=== PATIENT | male | born 1945 | race Two or more races ===

== ENCOUNTER 2020-05-31 18:51 | Inpatient (IN) | payer MEDICARE, OTHER ==
[~2020-05-31] VITALS: Ht 182.9 cm; Wt 97.2 kg
--- NOTE | 2020-05-31 19:38 | NUR ---
PRESENTED TO THE ER FOR C/O GENERALIZED WEAKNESS AND POOR APPETITE FOR THE PAST MONTH. PER BROTHER PT HAD A FALL EPISODE LAST NIGHT AND THE BROTHER FOUNH HIM ON THE FLOOR THIS MORNING. CURRENTLY PT IS ALERT AND OX4, RESPONSIVE TO QUESTIONS .DIAGNOSED W/ LIVER CA 4 MONTHS AGO AND TAKING LENVIMA DAILY,. PT WAS PLACED IN BED 4 ER. ON MONITOR,
[2020-05-31 19:56] LABS: BASOPHILS # (AUTO) 0.1 /CMM (0.0-0.2); BASOPHILS % (AUTO) 0.9 % (0.0-2.0); EOSINOPHILS % (AUTO) 0.5 % (0.0-6.0); LYMPHOCYTES # (AUTO) 1.7 /CMM (0.8-4.8); LYMPHOCYTES % (AUTO) 20.9 % (20.0-44.0); MEAN CORPUSCULAR HGB CONC 33 g/dl (31.0-36.0); MEAN CORPUSCULAR VOLUME 99 fL (80-96); MONOCYTES # (AUTO) 0.8 /CMM (0.1-1.30); MONOCYTES % (AUTO) 9.4 % (2.0-12.0); NEUTROPHILS # (AUTO) 5.7 /CMM (1.8-8.9); NEUTROPHILS % (AUTO) 68.3 % (43.0-81.0); RED BLOOD CELL COUNT(AUTO) 6.44 MIL/uL (4.5-6.0); WHITE BLOOD COUNT (AUTO) 8.3 K/uL (4.3-11.0)
--- NOTE | 2020-05-31 20:03 | NUR ---
DR KRAMER WITH BIOMASS PLANT MANAGER AT BED SIDE
[2020-05-31 20:04] LABS: HEMATOCRIT 63 % (39-51); HEMOGLOBIN 20.9 g/dL (13.5-17.5)
[2020-05-31 20:06] LABS: ALANINE AMINOTRANSFERASE 39 U/L (12-78); ALBUMIN 1.8 g/dL (3.4-5.0); ALKALINE PHOSPHATASE 502 U/L (46-116); ASPARTATE AMINOTRANSFERASE 93 U/L (15-37); LIPASE 39 U/L (73-393); TOTAL PROTEIN, SERUM 5.7 g/dL (6.4-8.2)
[2020-05-31 20:07] LABS: CALCIUM, SERUM 9.5 mg/dL (8.5-10.1); CARBON DIOXIDE 24 mmol/L (21-32); CHLORIDE 101 mmol/L (98-107); CREATININE 1.4 mg/dL (0.6-1.3); GLUCOSE 115 mg/dL (74-106); POTASSIUM 4.7 mmol/L (3.5-5.1); SODIUM SERUM 136 mmol/L (136-145); UREA NITROGEN, BLOOD 24 mg/dL (7-18)
--- NOTE | 2020-05-31 20:21 | NUR ---
BROTHER, ADELINE: [phone] TEDDY PARKER: [phone]
[2020-05-31 20:37] LABS: BAND % (MANUAL) 2 % (0.0-5.0); LYMPHOCYTES % (MANUAL) 11 % (16-48); MONOCYTES % (MANUAL) 4 % (0-11.0); NEUTROPHILS % (MANUAL) 83 (42-76)
[2020-05-31 20:38] LABS: PLATELET COUNT (AUTO) 91 /CMM (150-450)
[2020-05-31 20:42] LABS: BASOPHILS % (AUTO) 0.5 % (0.0-2.0); EOSINOPHILS % (AUTO) 0.4 % (0.0-6.0); LYMPHOCYTES # (AUTO) 1.3 /CMM (0.8-4.8); LYMPHOCYTES % (AUTO) 18.5 % (20.0-44.0); MEAN CORPUSCULAR HGB CONC 33 g/dl (31.0-36.0); MEAN CORPUSCULAR VOLUME 99 fL (80-96); MONOCYTES # (AUTO) 0.7 /CMM (0.1-1.30); MONOCYTES % (AUTO) 9.2 % (2.0-12.0); NEUTROPHILS # (AUTO) 5.1 /CMM (1.8-8.9); NEUTROPHILS % (AUTO) 71.4 % (43.0-81.0); PLATELET COUNT (AUTO) 89 /CMM (150-450); RED BLOOD CELL COUNT(AUTO) 6.21 MIL/uL (4.5-6.0); WHITE BLOOD COUNT (AUTO) 7.1 K/uL (4.3-11.0)
[2020-05-31] MEDS ORDERED: LENV8CAP PO (20:42)
--- NOTE | 2020-05-31 20:45 | NUR ---
BACK FROM CT
[2020-05-31 20:50] LABS: HEMATOCRIT 61 % (39-51); HEMOGLOBIN 20.3 g/dL (13.5-17.5)
--- NOTE | 2020-05-31 20:54 | NUR ---
COVID SWAB COLLECTED AND SENT TO LAB.
[2020-05-31] MEDS ORDERED: FURO-145 PO (21:15)
[2020-05-31] MEDS ORDERED: METF-440 PO (21:15)
[2020-05-31] MEDS ORDERED: IV NS 0.9% 1,000 ML IV ONE (21:30)
--- NOTE | 2020-05-31 21:37 | NUR ---
CALL FROM LAB, RAPID COVID NEGATIVE.
--- NOTE | 2020-05-31 21:38 | NUR ---
TELE 304-2
--- NOTE | 2020-05-31 21:52 | NUR ---
REPORT GIVEN TO MIGUEL ON THIRD FLOOR
--- NOTE | 2020-05-31 22:48 | NUR ---
PT WAS TRANSFERRED TO [address] [place] [address]
[2020-05-31 23:00] VITALS: BP 108/68
[2020-05-31] MEDS ORDERED: Z GUARD REMEDY 2 OZ OINT TP PRN (23:00)
[2020-05-31] MEDS ORDERED: MAG HYDROX/AL HYDROX/SIMETH 30 ML UDC PO PRN (23:00)
[2020-05-31] MEDS ORDERED: ONDANSETRON HCL/PF 4 MG/2 ML VIAL IVP PRN (23:00)
[2020-05-31] MEDS ORDERED: MAGNESIUM HYDROXIDE 30 ML UDC PO PRN (23:00)
[2020-05-31] MEDS ORDERED: HYDROCODONE/APAP 5/325MG TABLET PO PRN (23:00)
[2020-05-31] MEDS ORDERED: ACETAMINOPHEN 325 MG TABLET PO PRN (23:00)
[2020-05-31] MEDS ORDERED: ZOLPIDEM TARTRATE 5 MG TABLET PO PRN (23:00)
--- NOTE | 2020-05-31 23:00 | NUR ---
tag clerkwater truck driver notes Received Pt from ER nurse VAL Sebastian. Pt arrived at the unit with a gurney and ACLS protocol. Pt is alert and orientedX3. Pt speaks Central African and able to make needs known. Respiration is normal in room air. VS is stable. Afebrile. Tele monitor showed sinus arrythmia HR at 76. IV site at LAC#18 is clean, intact and infusing well NS bolus from ER. Pt also came with Lenvima chemo drug. Will give to pharmacy in am. Pt refused skin assessment. Offered multiple times. Explained risks and benefits. Pt keep refusing and get agitated easily. Pt's belonging is checked with SAPPHIRE Fink. Reorient Pt to the room and the use of call light. Pt verbalized understanding. Offered Pt snacks and water. Safety precautions is maintained. Bed at low position, brakes locked, side rails upX2, hob elevated, and call light is within reach. Will continue to monitor.
[2020-06-01] VITALS (8 sets, daily range): BP systolic 99–138; BP diastolic 63–86
[2020-06-01] MEDS ORDERED: ENOXAPARIN SODIUM 40 MG/0.4 ML DISP.SYRIN SQ SCH
--- NOTE | 2020-06-01 | NUR ---
trust and estates attorney notes Pt refused blood sugar checks. Offered several times. Pt keep refusing. Explained risks and benefits. Charge nurse is aware and notified. Will continue to monitor.
--- NOTE | 2020-06-01 00:40 | NUR ---
dental laboratory worker notes Informed MD regarding Pt Hgb is 20.3 Hct is 61 and platelet is 89. MD ordered to change to heparin 5000 unit Q 12. No lovenox. Returned lovenox to [facility].
[2020-06-01] MEDS: HEPARIN SODIUM, PORCINE 5000 UNITS/1 ML VIAL SQ SCH ×2 (00:45→09:00)
[2020-06-01] MEDS: IV 1/2NS 1000 ML 1,000 ML IV PRN (02:16)
--- NOTE | 2020-06-01 06:50 | NUR ---
food chemist closing notes Pt is resting in bed comfortably. Pt is alert and orientedX3. Respiration is normal in room air. No SOB. No S/S of distress noted. VS is stable. Afebrile. Tele monitor showed Sinus Arrythmia Hr at 85 with multifocal PVC. IV site at L hand#22 is clean, intact and infuising well 0.45NS@ 75 ml/hr. Kept Pt clean, dry and comfortable. All needs met and attended. safety precautions is maintained. Bed at low position, brakes locked, side rails upX2 and call light is within reach. Will endorse to morning nurse for CHERISE.
[2020-06-01] MEDS: BLOOD SUGAR DIAGNOSTIC 1 EACH STRIP IN SCH ×4 (06:53→22:19)
[2020-06-01] MEDS: INSULIN REGULAR, HUMAN 100 UNIT/ML 3 ML VIAL SQ PRN ×2 (06:54→22:20)
[2020-06-01 07:10] LABS: BASOPHILS % (AUTO) 0.3 % (0.0-2.0); EOSINOPHILS % (AUTO) 0.3 % (0.0-6.0); HEMATOCRIT 57 % (39-51); LYMPHOCYTES # (AUTO) 1.9 /CMM (0.8-4.8); LYMPHOCYTES % (AUTO) 21.4 % (20.0-44.0); MEAN CORPUSCULAR HGB CONC 34 g/dl (31.0-36.0); MEAN CORPUSCULAR VOLUME 98 fL (80-96); MONOCYTES # (AUTO) 0.8 /CMM (0.1-1.30); MONOCYTES % (AUTO) 8.7 % (2.0-12.0); NEUTROPHILS # (AUTO) 6.2 /CMM (1.8-8.9); NEUTROPHILS % (AUTO) 69.3 % (43.0-81.0); PLATELET COUNT (AUTO) 96 /CMM (150-450); RED BLOOD CELL COUNT(AUTO) 5.85 MIL/uL (4.5-6.0); WHITE BLOOD COUNT (AUTO) 8.9 K/uL (4.3-11.0)
[2020-06-01 07:12] LABS: HEMOGLOBIN 19.3 g/dL (13.5-17.5)
[2020-06-01 07:23] LABS: CALCIUM, SERUM 9.4 mg/dL (8.5-10.1); CARBON DIOXIDE 19 mmol/L (21-32); CHLORIDE 105 mmol/L (98-107); CREATININE 1.5 mg/dL (0.6-1.3); GLUCOSE 85 mg/dL (74-106); PHOSPHORUS 3.4 mg/dL (2.5-4.9); POTASSIUM 4.8 mmol/L (3.5-5.1); SODIUM SERUM 136 mmol/L (136-145); UREA NITROGEN, BLOOD 28 mg/dL (7-18)
[2020-06-01] MEDS: PANTOPRAZOLE 40 MG TABLET.DR PO SCH (07:30)
[2020-06-01 07:36] LABS: CHOLESTEROL 202 mg/dL (<200); HDL CHOLESTEROL 21 mg/dL (40-60); LDL 170 mg/dL (0-99); THYROID STIMULATING HORMONE 5.846 uIU/mL (0.358-3.74); TRIGLYCERIDES 94 mg/dL (30-150)
[2020-06-01] MEDS: LENVATINIB MESYLATE PO SCH (09:00)
[2020-06-01 12:37] LABS: ALBUMIN 1.7 g/dL (3.4-5.0); BILIRUBIN,DIRECT 7.9 mg/dL (0.0-0.2); BILIRUBIN,TOTAL 10.9 mg/dL (0.2-1.0); D-DIMER 12.29 mg/L(FEU (0.17-0.50); TOTAL PROTEIN, SERUM 5.1 g/dL (6.4-8.2)
[2020-06-01] MEDS ORDERED: LACTULOSE 10 G/15 ML UDC (PYXIS) PO PRN (14:00)
[2020-06-01] MEDS: LACTULOSE 10 G/15 ML UDC (PYXIS) PO SCH ×2 (15:00→21:00)
--- NOTE | 2020-06-01 19:46 | NUR ---
MS RN OPENING NOTE PATIENT A/OX1. SLEEPING; APHASIC AT THIS TIME. ON ROOM AIR; TOLERATING WELL WITH NO SOB. LEFT HAND #24G S/L; PATENT AND INTACT. DENIES PAIN OR DISCOMFORT AT THIS TIME. SAFETY MEASURES IN PLACE: BED IN LOWEST LOCKED POSITION, SIDE RAILS UPX2, BED ALARMS ON, CALL LIGHT WITHIN EASY REACH. PATIENT IS STABLE AT THIS TIME; WILL CONTINUE PLAN OF CARE.
--- NOTE | 2020-06-01 20:55 | NUR ---
MS RN NOTE PATIENT A/O 0; NOT RESPONSIVE TO PAINFUL STIMULI. NOTIFIED FORTINO SEAMAN AND CAME TO ASSESS PATIENT. ORDERED FOR STAT ABGS. ORDERS CARRIED OUT.
--- NOTE | 2020-06-01 22:35 | NUR ---
MS RN NOTE REPORTED ABG LAB TO FORTINO SEAMAN WITH ORDERS TO TRANSFER PATIENT TO ICU.
[2020-06-01 22:38] LABS: ABG BASE EXCESS -2.3 mmol/L; ABG OXYGEN SATURATION 95.4 % (92.0-98.5); ABG PCO2 16.8 mmHg (35.0-45.0); ABG PH 7.568 (7.350-7.450); AaDO2 57.6 mmHg; COHb 0.9 % (0.5-1.5); MetHb 0.4 % (0.0-1.5); O2Hb 94.2 % (94.0-97.0); SITE, ABG Left Brachial; VENT MODE, BG ROOM AIR
--- NOTE | 2020-06-01 22:50 | NUR ---
Received patient from [facility],transfered to iCu for closer monitory due to AMS,patient was admitted 05/31/20 due to generalized weakness.Hx of Hepatocellular CA.On admission Gzxoscq=031.Tonight found more altered(unresponsive) Ydcjuvs=044( no lactulose was given all day). Patient still unresponsive,slight blinking of eyes and slight withdrawal to deep pain. Icteric sclera, jaundiced all over, + Ascites. 2300 Moore catheter inserted ( deep orange colored urine),NGT inserted via right nares for meds.(will give 1 st dose of Lactulose.
--- NOTE | 2020-06-01 23:05 | NUR ---
MS RELEASE SPECIALIST NOTE GAVE REPORT TO LAURI PIER HAND HELPER. TRANSFERRED PATIENT TO ICU 258-1 UNDER ACLS MEASURES. ALL PATIENT BELONGINGS AND MEDICATIONS ARE BROUGHT TO ICU.
--- NOTE | 2020-06-01 23:22 | NUR ---
NOTIFIED NUVIA (BROTHER) THAT PATIENT TRANSFERRED TO ICU
[2020-06-01 23:29] LABS: CALCIUM, SERUM 8.8 mg/dL (8.5-10.1); CREATININE 0.7 mg/dL (0.6-1.3); POTASSIUM 3.7 mmol/L (3.5-5.1)
[2020-06-02] VITALS (84 sets, daily range): BP systolic 56–158; BP diastolic 23–118
--- NOTE | 2020-06-02 | NUR ---
Remains unresponsive,breathing regular and non labored,with O2 via NC ,saturating 94-95 %.Will closely monitor respiratory status,Aspiration Precaution.
[2020-06-02] MEDS: LACTULOSE 10 G/15 ML UDC (PYXIS) PO SCH ×4 (00:13→17:41)
[2020-06-02] MEDS: IV 1/2NS 1000 ML 1,000 ML IV PRN (00:58)
--- NOTE | 2020-06-02 04:00 | NUR ---
Still obtunded,still not fully waking up but responding to pain more,moves both arms,slightly opens eyes to pain,breathing easy and non labored.
--- NOTE | 2020-06-02 04:30 | NUR ---
No urine output for the last 4 hours. HAND CIGAR MAKER Demetra Sims was made aware,does not want any additional IV fluids ( patient already on 02/06 NSS @ 75 ml/hr.
[2020-06-02 04:33] LABS: BASOPHILS % (AUTO) 0.3 % (0.0-2.0); EOSINOPHILS % (AUTO) 0.1 % (0.0-6.0); HEMATOCRIT 59 % (39-51); LYMPHOCYTES # (AUTO) 1.9 /CMM (0.8-4.8); LYMPHOCYTES % (AUTO) 19.8 % (20.0-44.0); MEAN CORPUSCULAR HGB CONC 34 g/dl (31.0-36.0); MEAN CORPUSCULAR VOLUME 97 fL (80-96); MONOCYTES # (AUTO) 0.8 /CMM (0.1-1.30); MONOCYTES % (AUTO) 8.5 % (2.0-12.0); NEUTROPHILS # (AUTO) 6.7 /CMM (1.8-8.9); NEUTROPHILS % (AUTO) 71.3 % (43.0-81.0); WHITE BLOOD COUNT (AUTO) 9.4 K/uL (4.3-11.0)
[2020-06-02 04:52] LABS: ALANINE AMINOTRANSFERASE 41 U/L (12-78); ALBUMIN 1.9 g/dL (3.4-5.0); ALKALINE PHOSPHATASE 448 U/L (46-116); ASPARTATE AMINOTRANSFERASE 112 U/L (15-37); BILIRUBIN,TOTAL 11.9 mg/dL (0.2-1.0); CALCIUM, SERUM 9.6 mg/dL (8.5-10.1); CARBON DIOXIDE 14 mmol/L (21-32); CHLORIDE 103 mmol/L (98-107); CREATININE 2.5 mg/dL (0.6-1.3); GLUCOSE 93 mg/dL (74-106); PHOSPHORUS 4.7 mg/dL (2.5-4.9); POTASSIUM 5.5 mmol/L (3.5-5.1); SODIUM SERUM 134 mmol/L (136-145); TOTAL PROTEIN, SERUM 5.6 g/dL (6.4-8.2); UREA NITROGEN, BLOOD 36 mg/dL (7-18)
--- NOTE | 2020-06-02 06:00 | NUR ---
REmains obtunded,still maintaining good,patent airway ,saturating 93-94 %, still with no urine output.
[2020-06-02 06:11] LABS: PLATELET COUNT (AUTO) 116 /CMM (150-450)
[2020-06-02 06:15] LABS: BAND % (MANUAL) 1 % (0.0-5.0); LYMPHOCYTES % (MANUAL) 18 % (16-48); MONOCYTES % (MANUAL) 4 % (0-11.0); NEUTROPHILS % (MANUAL) 77 (42-76)
--- NOTE | 2020-06-02 06:45 | NUR ---
Alcon called for updates,expresses desire to transfer patient to another hospital ([facility]),briefly explain to her the process of transferring patient to another hospital,advised her to call a little later and speak to the MD in charge.Also mentioned to her that the patient may need a central line ( PICC ) if condition deteriorates,she states that whatever is needed to be done ,she agress and we can go ahead and do it if needed.
--- NOTE | 2020-06-02 08:00 | NUR ---
RN NOTES GET PATIENT CONFUSED NO RESPONDING NAMES, ON O2-3LNC, COLOR IS YELLOW, DISTENDED ABDOMEN, SOTO DRAIN DARK YELLOW SMALL AMOUNT OF OUTPUT, BREATHING DEEP. NG TUBE INTACT, ADMINISTERED DUE MEDICATION VIA NG TUBE, ABG DONE AND RESULT GIVEN DR GIBSON, AND HOSPITALIST DARWIN. INFUSING 1/2 NS @ 75 ML/HR, ON LEFT AC AREA INTACT. CALL LIGHT WITHIN TO REACH. SEEN GRADER MEAT Dr SOTO, PATIENT GET US OF KIDNEY,ECHO, AND LABS ORDERS. WILL FOLLOW UP.
[2020-06-02 08:10] LABS: ABG BASE EXCESS -12.7 mmol/L; ABG OXYGEN SATURATION 97.5 % (92.0-98.5); ABG PCO2 13.1 mmHg (35.0-45.0); ABG PH 7.379 (7.350-7.450); ABG PO2 98.4 mmHg (75.0-100.0); AaDO2 114.4 mmHg; COHb 0.4 % (0.5-1.5); MetHb 0.7 % (0.0-1.5); O2Hb 96.4 % (94.0-97.0); SITE, ABG Left Radial; VENT MODE, BG Nasal Cannula
[2020-06-02] MEDS: BLOOD SUGAR DIAGNOSTIC 1 EACH STRIP IN SCH ×4 (08:46→21:42)
[2020-06-02] MEDS: PANTOPRAZOLE 40 MG TABLET.DR PO SCH (08:46)
[2020-06-02] MEDS: DEXTROSE 50%-WATER 50 ML DISP.SYRIN IV PRN ×2 (08:47→10:48)
--- NOTE | 2020-06-02 08:47 | NUR ---
RN NOTES BS-60, ADMINISTERED DEXTROSE IV PUSH. WILL RECHECKED .
[2020-06-02] MEDS: LENVATINIB MESYLATE PO SCH (09:02)
--- NOTE | 2020-06-02 09:04 | NUR ---
RN NOTES GET ORDER Dr GIBSON PATIENT WILLING TO BE INTUBATED AT THIS TIME, CALLED ER MD. FAMILY NOTIFIED VIA Dr GIBSON.
--- NOTE | 2020-06-02 09:11 | NUR ---
rn notes PATIENT GET INTUBATED AT THIS TIME VIA ER MD STUART-7.5, PEEP-5, TV-500, AC-20, STARTED DIPRIVAN 5MCG/KG/HR .CALLED HOSPITAL COMMISSION SALES ASSOCIATE FOR PICC LINE INSERTION. WILL MONITORING.
[2020-06-02] MEDS: PROPOFOL 100 ML IV PRN ×2 (09:20→18:34)
[2020-06-02] MEDS: ALBUMIN 25% 25 GM in PREMIX 1 EA IV SCH ×2 (10:00→18:00)
[2020-06-02 10:11] LABS: BASOPHILS % (AUTO) 0.3 % (0.0-2.0); EOSINOPHILS % (AUTO) 0.3 % (0.0-6.0); LYMPHOCYTES # (AUTO) 0.9 /CMM (0.8-4.8); LYMPHOCYTES % (AUTO) 11.6 % (20.0-44.0); MEAN CORPUSCULAR HGB CONC 32 g/dl (31.0-36.0); MEAN CORPUSCULAR VOLUME 101 fL (80-96); MONOCYTES # (AUTO) 0.7 /CMM (0.1-1.30); MONOCYTES % (AUTO) 8.8 % (2.0-12.0); NEUTROPHILS # (AUTO) 5.9 /CMM (1.8-8.9); PLATELET COUNT (AUTO) 117 /CMM (150-450); RED BLOOD CELL COUNT(AUTO) 5.95 MIL/uL (4.5-6.0); WHITE BLOOD COUNT (AUTO) 7.5 K/uL (4.3-11.0)
[2020-06-02 10:17] LABS: CALCIUM, SERUM 9.6 mg/dL (8.5-10.1); CHLORIDE 101 mmol/L (98-107); CREATININE 3.4 mg/dL (0.6-1.3); GLUCOSE 150 mg/dL (74-106); SODIUM SERUM 135 mmol/L (136-145); UREA NITROGEN, BLOOD 38 mg/dL (7-18)
[2020-06-02 10:20] LABS: HEMATOCRIT 60 % (39-51); HEMOGLOBIN 19.5 g/dL (13.5-17.5); POTASSIUM 6.6 mmol/L (3.5-5.1)
[2020-06-02 10:21] LABS: CARBON DIOXIDE 8 mmol/L (21-32)
[2020-06-02 10:23] LABS: ALANINE AMINOTRANSFERASE 64 U/L (12-78); ALBUMIN 1.8 g/dL (3.4-5.0); ALKALINE PHOSPHATASE 441 U/L (46-116); ASPARTATE AMINOTRANSFERASE 271 U/L (15-37); MAGNESIUM 2.1 mg/dL (1.8-2.4); PHOSPHORUS 6.8 mg/dL (2.5-4.9); TOTAL PROTEIN, SERUM 5.5 g/dL (6.4-8.2)
--- NOTE | 2020-06-02 10:25 | NUR ---
rn notes get critical lab values kcl-6.6, carbon dioxide 8, hemoglobin 19, hematocrit 60, notified Dr Murphy, for orders.
--- NOTE | 2020-06-02 10:40 | NUR ---
rn notes GET CALL BACK Dr GUTIERREZ AND GET ORDER 10U REGULAR INSULIN IVP X 1, 1 AMP 0F DEXTROSE, AND REPEAT KCL IN 3 HR. ORDER TAKEN AND CARRIED OUT.
[2020-06-02 10:51] LABS: ABG BASE EXCESS -19.1 mmol/L; ABG OXYGEN SATURATION 96.5 % (92.0-98.5); ABG PCO2 17.7 mmHg (35.0-45.0); ABG PH 7.173 (7.350-7.450); ABG PO2 109.2 mmHg (75.0-100.0); AaDO2 155.6 mmHg; COHb 0.3 % (0.5-1.5); MetHb 0.9 % (0.0-1.5); O2Hb 95.3 % (94.0-97.0); PEEP,BG 5 cm H2O; SITE, ABG Right Radial; VT, ABG 500 mL
[2020-06-02] MEDS: INSULIN REGULAR, HUMAN 100 UNIT/ML 3 ML VIAL SQ PRN ×2 (10:51→12:56)
[2020-06-02] MEDS ORDERED: ETOMIDATE 2 MG/ML VIAL IV ONE (11:35)
[2020-06-02 11:51] LABS: LYMPHOCYTES % (MANUAL) 9 % (16-48); MONOCYTES % (MANUAL) 5 % (0-11.0); NEUTROPHILS % (MANUAL) 86 (42-76)
[2020-06-02] MEDS ORDERED: Sodium Bicarbonate 150 MEQ in IV D5W 1,000 ML IV PRN (12:00)
--- NOTE | 2020-06-02 12:00 | NUR ---
RN NOTES PER BROTHER NAME ADELINE PHONE #[phone] AND OTHER FAMILY MEMBERS AGREED DNR BECAUSE OF PATIENT CONDITION. Dr GUTIERREZ NOTIFIED.
--- NOTE | 2020-06-02 13:16 | NUR ---
RN NOTES STARTED D5W 1000ML WITH 3 AMP OF SODIUM BICARB AT 80 ML/HR ON RIGHT PICC LINE.
[2020-06-02] MEDS: NOREPINEPHRINE 8 MG in IV NS 0.9% 242 ML IV PRN ×2 (13:22→19:40)
[2020-06-02] MEDS ORDERED: Sodium Bicarbonate 150 MEQ in IV D5W 1,000 ML IV SCH ×2 (13:28→13:30)
--- NOTE | 2020-06-02 14:21 | NUR ---
RN NOTES PATIENT GETTING US OF LIVER.
[2020-06-02 14:46] LABS: CALCIUM, SERUM 6.7 mg/dL (8.5-10.1); CHLORIDE 103 mmol/L (98-107); CREATININE 2.9 mg/dL (0.6-1.3); GLUCOSE 163 mg/dL (74-106); SODIUM SERUM 135 mmol/L (136-145); UREA NITROGEN, BLOOD 35 mg/dL (7-18)
[2020-06-02 14:47] LABS: POTASSIUM 6.2 mmol/L (3.5-5.1)
[2020-06-02 14:48] LABS: CARBON DIOXIDE 7 mmol/L (21-32)
[2020-06-02] MEDS ORDERED: NOREPINEPHRINE 8 MG in IV NS 0.9% 242 ML IV PRN (15:00)
--- NOTE | 2020-06-02 15:51 | NUR ---
rn noters critical lab values KCL 6.2, D notified Dr Murphy waiting for orders.
--- NOTE | 2020-06-02 15:58 | NUR ---
RN NOTES GET CALL BACK FROM MD GUTIERREZ AND GET NEW ORDERS: ARE INSULIN 10U X1, AND KAYEXALATE 30 G X1 VIA NG TUBE, ORDERS TAKEN AND CARRIED OUT.
[2020-06-02] MEDS ORDERED: SODIUM POLYSTYRENE SULF. PWD 15 GM UDC PO ONE (16:30)
[2020-06-02] MEDS ORDERED: DEXTROSE 50%-WATER 50 ML DISP.SYRIN IVP ONE ×2 (16:30→18:00)
[2020-06-02] MEDS ORDERED: INSULIN REGULAR, HUMAN 100 UNIT/ML 3 ML VIAL SQ ONE (16:30)
--- NOTE | 2020-06-02 18:24 | NUR ---
RN NOTES BS-161 MG/DL, HR-90 BEDSIDE MONITOR. DUE MEDICATION ADMINISTERED, INFUSING D5W WITH 3 AMP OF BICARB @ 80ML/HR, LEVOPHED 0.2MCG/KG/HR, AND DIPRIVAN 15MCG/KG/HR ON RIGHT UA PICC LINE. LOW SOTO CATHETER OUTPUT 30ML. HOB ELEVATED, NO BOWEL MOVEMENT AFTER MEDICATION. FLASHED NGT WITH 100 ML/WATER, ASSIST TURN AND REPOSTION Q2 HR. BROTHER NEXT TO THE BED. ENDORSED ONCOMING NURSE FOLLOW PLAN OF CARE.
--- NOTE | 2020-06-02 19:30 | NUR ---
RN NOTES RECEIVED PATIENT ORALLY INTUBATED ETT 7 AND 24 CM AT LIPLINE. WITH VENT SETTING OF AC 28 TV 500 FIO2 40% AND PEEP 5 NO ACUTE RESPIRATORY DISTRESS. TACHYPNEA NOTED HR 28-30 SEDATED WITH DIPRIVAN @ 15 MCK/KG/MIN. GTF TOLERATED WELL, SOTO CATH DRAINED VIA GRAVITY . NIV SITE ON LFA, RIGHT HAND AND LEFT HAND AND WENDY PICC LINE WITH ONGOING D5 W + 3 AMP BICARB, DIPRIVAN AND LEVOPHED WILL TITRATED PROTOCOL ORDER. ABDOMINAL DISTENTION PRESENT SOFT . CONTINUE TO MONITOR FOR ANY CHANGES KEPT PT CLEAN AND DRY WILL CONT. POC.
--- NOTE | 2020-06-02 20:00 | NUR ---
RN NOTES NOTED PATIENT GASTRIC RESIDUAL WAS 350 ML,WILL CONTINUE WITH POC.
[2020-06-03] VITALS (85 sets, daily range): BP systolic 40–171; BP diastolic 14–104
[2020-06-03] MEDS: LACTULOSE 10 G/15 ML UDC (PYXIS) PO SCH ×4 (00:09→17:41)
[2020-06-03] MEDS: NOREPINEPHRINE 8 MG in IV NS 0.9% 242 ML IV PRN ×4 (01:57→23:04)
[2020-06-03] MEDS: ALBUMIN 25% 25 GM in PREMIX 1 EA IV SCH (02:00)
[2020-06-03] MEDS: Sodium Bicarbonate 150 MEQ in IV D5W 1,000 ML IV SCH ×2 (02:12→15:52)
[2020-06-03 04:25] LABS: BASOPHILS # (AUTO) 0.1 /CMM (0.0-0.2); BASOPHILS % (AUTO) 0.7 % (0.0-2.0); EOSINOPHILS % (AUTO) 0.2 % (0.0-6.0); HEMATOCRIT 57 % (39-51); HEMOGLOBIN 18.4 g/dL (13.5-17.5); LYMPHOCYTES # (AUTO) 1.7 /CMM (0.8-4.8); LYMPHOCYTES % (AUTO) 12.7 % (20.0-44.0); MEAN CORPUSCULAR HGB CONC 33 g/dl (31.0-36.0); MEAN CORPUSCULAR VOLUME 101 fL (80-96); MONOCYTES # (AUTO) 0.8 /CMM (0.1-1.30); MONOCYTES % (AUTO) 6.1 % (2.0-12.0); NEUTROPHILS % (AUTO) 80.3 % (43.0-81.0); RED BLOOD CELL COUNT(AUTO) 5.63 MIL/uL (4.5-6.0); WHITE BLOOD COUNT (AUTO) 13.7 K/uL (4.3-11.0)
[2020-06-03 04:35] LABS: SERUM AMMONIA 20 umol/L (11-32)
[2020-06-03 04:39] LABS: ALANINE AMINOTRANSFERASE 1374 U/L (12-78); ALBUMIN 1.5 g/dL (3.4-5.0); ALKALINE PHOSPHATASE 601 U/L (46-116); BILIRUBIN,DIRECT 9.8 mg/dL (0.0-0.2); BILIRUBIN,TOTAL 13.6 mg/dL (0.2-1.0); CARBON DIOXIDE 13 mmol/L (21-32); CHLORIDE 100 mmol/L (98-107); CREATINE KINASE, TOTAL 679 U/L (39-308); CREATININE 3.6 mg/dL (0.6-1.3); GLUCOSE 167 mg/dL (74-106); MAGNESIUM 2.1 mg/dL (1.8-2.4); PHOSPHORUS 6.9 mg/dL (2.5-4.9); POTASSIUM 5.4 mmol/L (3.5-5.1); SODIUM SERUM 135 mmol/L (136-145); TOTAL PROTEIN, SERUM 4.8 g/dL (6.4-8.2); UREA NITROGEN, BLOOD 41 mg/dL (7-18)
[2020-06-03 05:14] LABS: PLATELET COUNT (AUTO) 78 /CMM (150-450)
[2020-06-03 05:18] LABS: BAND % (MANUAL) 6 % (0.0-5.0); LYMPHOCYTES % (MANUAL) 4 % (16-48); MONOCYTES % (MANUAL) 3 % (0-11.0); NEUTROPHILS % (MANUAL) 87 (42-76)
[2020-06-03 05:45] LABS: ASPARTATE AMINOTRANSFERASE 2343 U/L (15-37)
--- NOTE | 2020-06-03 06:00 | NUR ---
RT NOTE PT RECEIVED ORALLY INTUBATED AND ON [facility] VENT ON ORDERED SETTINGS. VENT IS PLUGGED INTO RED OUTLET W BMV @ HOB. ALARMS ARE SET AND AUDIBLE. PT SX FOR SMALL THIN SECRETIONS. NO RESP DISTRESS NOTED T/O SHIFT. Addendum: 06/03/20 at 0600 by GO AVERY RT Amended: Links added.
[2020-06-03] MEDS: PROPOFOL 100 ML IV PRN (06:24)
--- NOTE | 2020-06-03 07:10 | NUR ---
RN NOTES RECEIVED PATIENT IN BED RESTING COMFORTABLY IN MODERATE HIGH BACK REST, SEDATED AND ON VENT, ETT 08/28, AC28,TV 500, FIO2 40, PEEP OF 5 WITH SATURATION 100%. IV ACCESS ON WENDY PICCLINE WITH D5W +3 AMP BICARB, DIPRIVAN @5 MCG/KG/MIN AND LEVOPHED @0.1 MCG/KG/MIN, TITRATED ORDERED. IV SITE REMAINED INTACT AND PATENT. NGT TO LIS. SOTO CATH INTACT AND PATENT DRAINING VIA GRAVITY. SAFETY MEASURE IN PLACE, BED IN LOWEST LOCKED POSITION WITH SIDE RAILS UP X2, CALL LIGHT WITHIN EASY REACH. WILL CONTINUE TO MONITOR.
--- NOTE | 2020-06-03 07:24 | NUR ---
RN NOTES PATIENT REMAINED UNRESPONSIVE TO STIMULI. ETT AND VENT SETTING TOLERATED WELL WITH SATURATION 100%. AFEBRILE. VSS STABLE WITH PRESSORS, NO SIGNIFICANT CHANGES, CONTINUE ON IV D5W +3 AMP BICARB, DIPRIVAN AND LEVOPHES TITRATED ORDERED. IV SITE REMAINED INTACT AND PATENT. NGT TO LIS. SOTO CATH WITH LOW URINE OUTPUT. BM X 2 . KEPT PATIENT CLEAN AND DRY. WILL ENDORSED CONT. POC.
[2020-06-03] MEDS: PANTOPRAZOLE 40 MG TABLET.DR PO SCH (07:47)
[2020-06-03] MEDS: BLOOD SUGAR DIAGNOSTIC 1 EACH STRIP IN SCH ×4 (07:47→22:12)
[2020-06-03] MEDS: INSULIN REGULAR, HUMAN 100 UNIT/ML 3 ML VIAL SQ PRN ×2 (07:50→11:53)
[2020-06-03] MEDS: LENVATINIB MESYLATE PO SCH (08:49)
[2020-06-03 08:58] LABS: ABG BASE EXCESS -12.1 mmol/L; ABG OXYGEN SATURATION 98.8 % (92.0-98.5); ABG PCO2 14.1 mmHg (35.0-45.0); ABG PH 7.391 (7.350-7.450); ABG PO2 128.5 mmHg (75.0-100.0); AaDO2 140.5 mmHg; MetHb 0.7 % (0.0-1.5); O2Hb 98.1 % (94.0-97.0); PEEP,BG 5 cm H2O; SITE, ABG Left Radial; VT, ABG 500 mL
--- NOTE | 2020-06-03 10:20 | NUR ---
LEAN MANAGER NOTES PATIENT WENT FOR CT SCAN OF HEAD. STABLE, WILL CONTINUE TO MONITOR.
--- NOTE | 2020-06-03 11:00 | NUR ---
FIELD PIPE LINES SUPERVISOR NOTES CAMEBACK FROM CT HEAD, STABLE, NO SIGNS OF DISTRESS NOTED AT THIS TIME, WILL CONTINUE TO MONITOR.
--- NOTE | 2020-06-03 12:30 | NUR ---
FAC ENGINEER NOTES BP IS GOING DOWN BUT WHILE TITRATING LEVOPHED UP, PATIENT BECAME ST ON MONITOR WITH HR OF 120'S, MD MADE AWARE WITH ORDERS TO SWITCH TO ANURADHA, ORDERS MADE AND CARRIED OUT. WILL CONTINUE TO MONITOR.
[2020-06-03] MEDS ORDERED: PHENYLEPHRINE 50 MG in IV NS 0.9% 245 ML IV PRN (13:00)
--- NOTE | 2020-06-03 14:00 | NUR ---
VOLLEYBALL COMMENTATOR NOTES UNABLE TO TURN AND REPOSITION PATIENT TOO UNSTABLE. WILL CONTINUE TO MONITOR.
--- NOTE | 2020-06-03 15:00 | NUR ---
PHOTOENGRAVING SKETCH MAKER NOTES UNABLE TO GET BP, TRIED BOTH ARMS AND LEGS BUT UNSUCCESSFUL, NOTED WITH CRITICAL LAB RESULTS, MADE AWARE, NNO AT THIS TIME. WILL CONTINUE TO MONITOR.
[2020-06-03 15:30] LABS: D-DIMER > 35.20 mg/L(FEU (0.17-0.50)
[2020-06-03] MEDS ORDERED: PHYTONADIONE INJ 10 MG/1 ML AMPUL SQ ONE (16:00)
--- NOTE | 2020-06-03 16:00 | NUR ---
WELCOME HOSTESS NOTES DR. GUTIERREZ ORDERED TO GIVE 10 MG OF VITAMIN K SQ ONE TIME, ORDERS MADE AND CARRIED OUT, WILL CONTINUE TO MONITOR.
[2020-06-03] MEDS ORDERED: diphenhydrAMINE HCL 50 MG/ML VIAL IV ONE (17:30)
[2020-06-03] MEDS: PHENYLEPHRINE 100 MG in IV NS 0.9% 240 ML IV PRN (17:41)
--- NOTE | 2020-06-03 19:15 | NUR ---
RN NOTES PATIENT IN BED IN MODERATE HIGH BACK REST, ON VENT, ETT 08/28, AC28,TV 500, FIO2 40, PEEP OF 5 WITH SATURATION 100%. IV ACCESS ON WENDY PICCLINE WITH D5W +3 AMP BICARB, LEVOPHED @0.1 MCG/KG/MIN AND ANURADHA @3 MCG/KG/MIN, TITRATED ORDERED. IV SITE REMAINED INTACT AND PATENT. NGT TO LIS. SOTO CATH INTACT AND PATENT DRAINING VIA GRAVITY. SAFETY MEASURE IN PLACE, BED IN LOWEST LOCKED POSITION WITH SIDE RAILS UP X2, CALL LIGHT WITHIN EASY REACH. TYPE AND SCREEN DONE, AWAITING FOR PLASMA,CALLED LAB, ENDORSE TO POLICE SHIFT COMMANDER NURSE FOR CHERISE.
--- NOTE | 2020-06-03 19:20 | NUR ---
RN NOTES RECEIVED PATIENT WITH ETT 7 AND 24 CM AT LIPLINE, VENT SETTING AC 28 TV 500 FIO2 40% AND PEEP 5 OBTUNDED , NON RESPONSIVE TO STIMULI. PATIENT IS HEMODYNAMICALLY UNSTABLE. PALE LOOKING, COOL SKIN, WITH FAINTED PULSES, CAPILLARY REFILL >3 SEC. WITH EXOPTHALMOS EYES RIGHT PUPIL 3 AND LEFT EYE 5 WITH BLOOD CLOTS. WITH LOW PERFUSION HARDLY GETS SATURATION PATIENT SATURATION SEEN 92%. NGT TO LIS WITH LARGE AMT OF DARK RED OUTPUT. CONTINUE ON MAX ANURADHA WITH LEVOPHED AND D5W +3 AMP BICARB AT 80 ML/HR PRESSORS TITRATED PROTOCOL ORDER. KEPT PT CLEAN AND COMFORTABLE IN BED. WILL CLOSELY MONITOR.. >PER AM SHIFT FAMILY IS AWARE AND MD SPOKE WITH THE FAMILY REGARDING THE CRITICAL CONDITION OF PATIENT.
--- NOTE | 2020-06-03 19:55 | NUR ---
RECEIVED PT ORALLY INTUBATED WITH ETT 7.5 SECURED @ 24 CM LIP LINE ON VENT WITH THE SETTINGS OF AC 28, VT 500, PEEP 5 , FIO2 40%. SX'D DONE. VENT ALARMS SET AND AUDIBLE. ETT CUFF CHECKED. VENT PLUGGED INTO RED OUTLET. WILL CONTINUE TO MONITOR PT T/O SHIFT.
--- NOTE | 2020-06-03 20:15 | NUR ---
RN NOTES INFORMED ON CALLL JURGEN, THAT PATIENT IS NOT LOOKING GOOD AND RECEIVE A CRITICAL RESULT OF FIBRINOGEN 50 BUT STILL AWAITING FOR PLASMA TO GET THAWED WHICH ORDER TODAY. PER ONCALL MD IS AWARE AND BAKING POWDER MIXER ALREADY SPOKE TO FAMILY REGARDING THE PATIENT CONDITION.
--- NOTE | 2020-06-03 21:00 | NUR ---
RN NOTES UPDATED JURGEN ONCANNALEE THAT PATIENT LEVOPHED AND ANURADHA IS ON MAX DOSE AT THIS TIME AND PATIETN UNABLE TO GET BP NOW. ONCALL AWARE. NNO AT THIS TIME.
[2020-06-03] MEDS ORDERED: diphenhydrAMINE HCL 50 MG/ML VIAL ONE (21:23)
--- NOTE | 2020-06-03 22:05 | NUR ---
RN NOTES STARTED PLASMA TRANSFUSION. UNABLETO GET BP, DOPPLER AND MANUAL CUFF USED SBP 85 MMHG. PATIENT IS ONMAXNEO AND LEVO. MD AWARE NNO.
--- NOTE | 2020-06-03 22:30 | NUR ---
RN NOTES BOX BENDER FORTINO CAME AND VISITED THE PATIETN AWARE ABOUT THE PATIENT CONDITION. NNO
[2020-06-03] MEDS ORDERED: NOREPINEPHRINE 8MG/250ML RTU 250 ML IV ONE (22:50)
[2020-06-04] VITALS (20 sets, daily range): BP systolic 50–93; BP diastolic 0–45
[2020-06-04] MEDS: PHENYLEPHRINE 100 MG in IV NS 0.9% 240 ML IV PRN ×4 (00:10→16:48)
[2020-06-04] MEDS ORDERED: NOREPINEPHRINE 4 MG/4 ML AMPUL IV ONE ×4 (00:10→05:07)
[2020-06-04] MEDS: NOREPINEPHRINE 32 MG in IV NS 0.9% 218 ML IV PRN ×4 (00:18→17:01)
--- NOTE | 2020-06-04 00:30 | NUR ---
RN DARINEL ADELINE (BROTHER) CAME AND SPOKE WITH FORTINO SOLIS USING BLUE PHONE ( LANGUAGE LINE) TO TRANSLATE TO TELUGU LANGUAGE. EXPLAINED THE PROGNOSIS OF THE PATIENT AND THE CRITICAL CONDITION OF THE PATIENT,
[2020-06-04] MEDS: LACTULOSE 10 G/15 ML UDC (PYXIS) PO SCH ×4 (01:13→17:56)
--- NOTE | 2020-06-04 01:48 | NUR ---
RN NOTES SECOND UNIT OF PLASMA STARTED PATIENT , NO CHANGE FROM PREVIOUS CONDITION. WILL CLOSELY MONITOR,. AFEBRILE.
[2020-06-04 04:18] LABS: BASOPHILS % (AUTO) 0.5 % (0.0-2.0); EOSINOPHILS % (AUTO) 0.5 % (0.0-6.0); HEMATOCRIT 49 % (39-51); HEMOGLOBIN 14.9 g/dL (13.5-17.5); LYMPHOCYTES # (AUTO) 1.3 /CMM (0.8-4.8); LYMPHOCYTES % (AUTO) 26.6 % (20.0-44.0); MEAN CORPUSCULAR HGB CONC 30 g/dl (31.0-36.0); MEAN CORPUSCULAR VOLUME 109 fL (80-96); MONOCYTES # (AUTO) 0.1 /CMM (0.1-1.30); NEUTROPHILS # (AUTO) 3.5 /CMM (1.8-8.9); NEUTROPHILS % (AUTO) 70.4 % (43.0-81.0); RED BLOOD CELL COUNT(AUTO) 4.48 MIL/uL (4.5-6.0)
[2020-06-04 04:41] LABS: ALANINE AMINOTRANSFERASE 1580 U/L (12-78); ALBUMIN 1.5 g/dL (3.4-5.0); ALKALINE PHOSPHATASE 742 U/L (46-116); BILIRUBIN,DIRECT 6.5 mg/dL (0.0-0.2); BILIRUBIN,TOTAL 11.3 mg/dL (0.2-1.0); CALCIUM, SERUM 9.1 mg/dL (8.5-10.1); CHLORIDE 99 mmol/L (98-107); CREATININE 4.6 mg/dL (0.6-1.3); GLUCOSE 82 mg/dL (74-106); MAGNESIUM 2.3 mg/dL (1.8-2.4); SODIUM SERUM 137 mmol/L (136-145); TOTAL PROTEIN, SERUM 4.2 g/dL (6.4-8.2); UREA NITROGEN, BLOOD 42 mg/dL (7-18)
[2020-06-04 04:58] LABS: PLATELET COUNT (AUTO) 46 /CMM (150-450)
[2020-06-04 05:19] LABS: POTASSIUM 6.2 mmol/L (3.5-5.1)
[2020-06-04 05:24] LABS: CARBON DIOXIDE 8 mmol/L (21-32)
[2020-06-04 05:25] LABS: PHOSPHORUS 10.7 mg/dL (2.5-4.9)
--- NOTE | 2020-06-04 05:44 | NUR ---
RN NOTES INFORMEDONCALL FORTINO SEAMAN REGARDING CRITICAL LAB PLATELET 46 CO2 8 PHOS 10.7 AND UPDATED REGARDING PATIENT STATUS THAT SBP IS ON 60'S WITH NEW ORDEROF VASOPRESSIN, HOLD LIS AND HOLD LACTULOSE FOR NOW. NOTED AND CARRIED OUT ORDER.
[2020-06-04] MEDS ORDERED: VASOPRESSIN INJ 20 UNIT/ML VIAL ONE (05:50)
[2020-06-04 05:57] LABS: BAND % (MANUAL) 13 % (0.0-5.0); EOSINOPHILS % (MANUAL) 1 % (0-4); LYMPHOCYTES % (MANUAL) 27 % (16-48); METAMYELOCYTES % 1 % (0-0); MONOCYTES % (MANUAL) 3 % (0-11.0); MYELOCYTES % 1 % (0-0); NEUTROPHILS % (MANUAL) 54 (42-76)
[2020-06-04] MEDS: VASOPRESSIN INJ 40 UNIT in IV NS 0.9% 38 ML IV PRN ×4 (06:00→17:01)
[2020-06-04] MEDS: Sodium Bicarbonate 150 MEQ in IV D5W 1,000 ML IV SCH (06:09)
[2020-06-04 06:17] LABS: ASPARTATE AMINOTRANSFERASE 14569 U/L (15-37)
--- NOTE | 2020-06-04 07:54 | NUR ---
WOUND CARE CONSULT: PT VERY UNSTABLE AT THIS TIME AND UNABLE TO BE TURNED FOR SKIN ASSESSMENT. RECOMMENDATIONS MADE FOR SKIN PROTECTION. DISCUSSED WITH NURSING STAFF. MD IN AGREEMENT WITH PLAN OF CARE. WILL SEE PT PT CONDITION PERMITS.
[2020-06-04 08:07] LABS: *SPE A/G RATIO 0.7 (0.7-1.7); *SPE ALBUMIN 1.9 g/dL (2.9-4.4); *SPE ALPHA-1-GLOBULIN 0.2 g/dL (0.0-0.4); *SPE ALPHA-2-GLOBULIN 0.4 g/dL (0.4-1.0); *SPE GLOBULIN, TOTAL 2.7 g/dL (2.2-3.9); *SPE M-SPIKE Not Observed g/dL (Not Observed); *SPEGAMMA GLOBULIN 1.1 g/dL (0.4-1.8); PTH, INTACT 360 pg/mL (15-65)
[2020-06-04] MEDS: LENVATINIB MESYLATE PO SCH (08:58)
[2020-06-04] MEDS: PANTOPRAZOLE 40 MG TABLET.DR PO SCH (08:58)
[2020-06-04] MEDS: BLOOD SUGAR DIAGNOSTIC 1 EACH STRIP IN SCH ×3 (08:59→18:12)
[2020-06-04] MEDS: HYDROCORTISONE SOD SUCCINATE 100 MG/2 ML VIAL IV SCH ×2 (09:00→12:47)
[2020-06-04] MEDS ORDERED: POLYVINYL ALCOHOL 15 ML BOTTLE EACHEYE PRN (11:00)
[2020-06-04] MEDS: DEXTROSE 50%-WATER 50 ML DISP.SYRIN IV PRN (11:43)
[2020-06-04] MEDS ORDERED: FLUDROCORTISONE 0.1 MG TABLET NG SCH (12:00)
--- NOTE | 2020-06-04 14:31 | NUR ---
RN NOTE 0715: Received patient with ETT to vent, no respiratory distress noted at this time. On 3 pressors all maxed out, Levo, Jose and Vaso. WENDY PICC intact, on Bicarb drip 3amps drip. With Moore cath, very minimal UOP noted. Noted with tender and distended abdomen. Unable to take BP via bedside monitor, checked manually, SBP 70-80's. Junctional accel 100's. With Right NGT to LIS, noted with dark brown residuals. 0800: S/E by Dr. Triplett, with new order of Fluticasone. 0830: Spoke with brother via phone, given update and aware for the poor prognosis. 0900: S/E by Dr. Montoya;eg, no new order at this time. 1100: No any significant changes noted at this time, will continue to monitor. agreed to change Protonix to IV and start eye drops. 1330: Brother Maldonado visited and able to see patient, updated re: patient;s prognosis. Per brother continue pressors and DNR. 1420: Called Maldonado, other family members with him, tried to get consent for HD cath placement and HD but family decided to decline HD and line placement.
[2020-06-04] MEDS ORDERED: diphenhydrAMINE HCL 50 MG/ML VIAL IV ONE (16:30)
--- NOTE | 2020-06-04 18:56 | NUR ---
RN NOTE Noted with pauses on the monitor. Ventricular rhythm 40-70's. Informed family and said they will visit.
--- NOTE | 2020-06-04 19:30 | NUR ---
MARBLE AND GRANITE POLISHER RCD PT W/DX ACUTE HEPATIC ENCEPHALOPATHY, PT IS MAXED ON LEVOPHED,ANURADHA, VASOPRESSIN. PT IS JUNCTIONAL ON MONITOR WITH LONG PAUSES. INTUBATED 7.5@ 24 W/VENT SETTINGS AC 28 500 40% +5. PT HAS LARGE AMOUNTS OF BLOODY SECRETIONS. PT IS JAUNDICED WITH MULITPLE BRUSING/HEMATOMA. PT BROTHER AT BEDSIDE.
--- NOTE | 2020-06-04 20:02 | NUR ---
BIOLOGIST AIDE PT MAXED ON LEVO, ANURADHA AND VASOPRESSIN. UNABLE TO PALPATE PULSE AT THIS TIME VIA TOUCH AND DOPPLER. UNABLE TO READ BLOOD PRESSURE VIA AUTOMATIC AND MANUAL CUFF. PT PRONOUNCED BY [employer] PRECASTERVAL MANCIA.
--- NOTE | 2020-06-04 20:05 | NUR ---
AUTOMOBILE PARTS ASSEMBLER PTS BROTHER AKOP [phone] NOTIFIED OF PTS . PER BROTHER HE WILL NOT BE COMING TO SEE BODY.
--- NOTE | 2020-06-04 20:51 | NUR ---
ELECTRICIAN RESEARCH S/W TONI AT [facility] . PER [facility] PT IS MARIMAR FOR DONATION, THEY WILL CALL BACK,
--- NOTE | 2020-06-04 20:52 | NUR ---
PACKAGING MACHINE OPERATOR BODY TAKEN DOWN TO [facility] [place]AN[place] BY CHARGE NURSE.
[2020-06-05] MEDS ORDERED: PANTOPRAZOLE 40 MG VIAL IV SCH (09:00)
== END 2020-06-04 20:02 | DRG 441 ==
LOC: ER 18:51 → TELE 21:42 → MED 06-01 09:44 → ICU 06-01 23:01
PROVIDERS: ADMIT Student in an Organized Health Care Education/Training Program; ATTEND Internal Medicine
PROC: 5A1945Z Respiratory Ventilation, 24-96 Consecutive Hours (ICD-10-PCS; principal; 2020-06-02)
PROC: 0BH18EZ Insertion of Endotracheal Airway into Trachea, Via Natural or Artificial Opening Endoscopic (ICD-10-PCS; 2020-06-02)
PROC: 02HV33Z Insertion of Infusion Device into Superior Vena Cava, Percutaneous Approach (ICD-10-PCS; 2020-06-02)
PROC: B548ZZA Ultrasonography of Superior Vena Cava, Guidance (ICD-10-PCS; 2020-06-02)
PROC: 30233K1 Transfusion of Nonautologous Frozen Plasma into Peripheral Vein, Percutaneous Approach (ICD-10-PCS; 2020-06-03)
DX: K72.00 Acute and subacute hepatic failure without coma (principal); N17.0 Acute kidney failure with tubular necrosis; E43 Unspecified severe protein-calorie malnutrition; G93.41 Metabolic encephalopathy; G92 Toxic encephalopathy; J96.01 Acute respiratory failure with hypoxia; K76.7 Hepatorenal syndrome; K83.1 Obstruction of bile duct; C22.9 Malignant neoplasm of liver, not specified as primary or secondary; K76.6 Portal hypertension; E87.2 Acidosis; J90 Pleural effusion, not elsewhere classified; J98.11 Atelectasis; R57.9 Shock, unspecified; D68.9 Coagulation defect, unspecified; Z20.822 Contact with and (suspected) exposure to COVID-19; D69.6 Thrombocytopenia, unspecified; E11.9 Type 2 diabetes mellitus without complications; Z86.73 Personal history of transient ischemic attack (TIA), and cerebral infarction without residual deficits; E86.0 Dehydration; D75.1 Secondary polycythemia; E83.52 Hypercalcemia; E87.5 Hyperkalemia; R53.1 Weakness; R74.01 Elevation of levels of liver transaminase levels; E88.09 Other disorders of plasma-protein metabolism, not elsewhere classified; Z68.29 Body mass index [BMI] 29.0-29.9, adult; N18.9 Chronic kidney disease, unspecified; Z79.84 Long term (current) use of oral hypoglycemic drugs; I12.9 Hypertensive chronic kidney disease with stage 1 through stage 4 chronic kidney disease, or unspecified chronic kidney disease; Z66 Do not resuscitate
CPT/HCPCS: 31720; 36415; 36569; 36600; 70450-TC; 71045-TC; 72125-TC; 76705-TC; 76770-TC; 80048-TC; 80053-TC; 80061-TC; 80076-TC; 82140-TC; 82533; 82550-TC; 82553; 82803-TC; 82962-TC; 83690-TC; 83735-TC; 83970; 84100-TC; 84155; 84165; 84443-TC; 85025-TC; 85396; 85610-TC; 85730-TC; 86850-TC; 87040-TC; 87081-TC; 92526; 92611-TC; 93307-TC; 94002-TC; 94003-TC; 94799-TC; 95819-TC; A4216; A4349; C1751; G0378; J1200; J1644; J1650; J1720; J1815; J2370; J3430; J3490; J7030; J7050; J7070; P9017-BL; P9047